=== PATIENT | female | born 1985 | race Two or more races ===

== ENCOUNTER 2018-08-19 18:05 | Emergency (ER) | payer OTHER ==
[~2018-08-19] VITALS: Ht 162.6 cm; Wt 54.4 kg
--- NOTE | 2018-08-19 18:30 | NUR ---
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 Patient a/ox4, breathing even and unlabored, kept comfortable, placed on the monitor.
[2018-08-19] MEDS ORDERED: IV NS 0.9% 1,000 ML BAG IV ONE (19:00)
[2018-08-19 19:07] LABS: BASOPHILS # (AUTO) 0.1 /CMM (0.0-0.2); BASOPHILS % (AUTO) 0.9 % (0.0-2.0); EOSINOPHILS % (AUTO) 3.4 % (0.0-6.0); HEMATOCRIT 42 % (33-45); HEMOGLOBIN 14.2 g/dL (11.5-14.8); LYMPHOCYTES # (AUTO) 1.8 /CMM (0.8-4.8); LYMPHOCYTES % (AUTO) 20.5 % (20.0-44.0); MEAN CORPUSCULAR HGB CONC 34 g/dl (31.0-36.0); MEAN CORPUSCULAR VOLUME 90 fL (82-100); MONOCYTES # (AUTO) 0.6 /CMM (0.1-1.30); NEUTROPHILS # (AUTO) 6.1 /CMM (1.8-8.9); NEUTROPHILS % (AUTO) 68.2 % (43.0-81.0); PLATELET COUNT (AUTO) 232 /CMM (150-450); RED BLOOD CELL COUNT(AUTO) 4.68 MIL/uL (4.0-5.2)
[2018-08-19 19:27] LABS: BILIRUBIN,TOTAL 0.2 mg/dL (0.2-1.0); CALCIUM, SERUM 9.1 mg/dL (8.5-10.1); CREATININE 0.6 mg/dL (0.6-1.3); POTASSIUM 3.5 mmol/L (3.5-5.1)
[2018-08-19 19:37] LABS: APPEARANCE,URINE Clear (CLEAR); BILIRUBIN,URINE Negative (NEGATIVE); BLOOD, URINE Negative Ery/uL (NEGATIVE); COLOR,URINE Yellow (YELLOW); KETONES,URINE Negative (NEGATIVE); LEUKOCYTE ESTERASE ,URINE Negative (NEGATIVE); NITRITE, URINE Negative (NEGATIVE); PROTEIN,URINE Negative (NEGATIVE); UGLUCOSE Negative (NEGATIVE); UROBILINOGEN,URINE 0.2 EU/dL (0.2)
--- NOTE | 2018-08-19 19:52 | NUR ---
patient came back from CT.
[2018-08-19] MEDS ORDERED: ALPRAZOLAM 0.5 MG TABLET ONE (19:58)
[2018-08-19] MEDS ORDERED: ALPRAZOLAM 0.5 MG TABLET PO ONE (20:00)
--- NOTE | 2018-08-19 21:10 | NUR ---
Rx provided, PIV removed. Patient discharged to home in stable condition. Written and verbal after care instructions given. Patient verbalizes understanding of instruction.
[2018-08-19 21:11] VITALS: BP 109/64
== END 2018-08-19 21:11 | disposition home or self-care (01) ==
LOC: ER 18:05
DX: R42 Dizziness and giddiness (principal); R20.2 Paresthesia of skin; R41.82 Altered mental status, unspecified; Z60.2 Problems related to living alone
CPT/HCPCS: 36415; 70450; 80048; 80076; 81001; 83690; 84703; 85025; 96360; 99284; J7030 ×2; 81000-TC

== ENCOUNTER 2024-10-29 08:57 | Emergency (ER) | payer BC, OTHER ==
[~2024-10-29] VITALS: Ht 162.6 cm; Wt 63.5 kg
[2024-10-29] MEDS ORDERED: dexaMETHasone SOD PHOSPHATE 1 ML ONE (11:17)
[2024-10-29] MEDS ORDERED: METHOCARBAMOL (500MG) 500 MG TABLET ONE (11:18)
[2024-10-29] MEDS ORDERED: KETOROLAC TROMETHAMINE INJ 30 MG/ML VIAL ONE (11:18)
[2024-10-29] MEDS ORDERED: ACETAMINOPHEN 325 MG TABLET ONE (11:18)
[2024-10-29] MEDS: KETOROLAC TROMETHAMINE INJ 30 MG/ML VIAL IM ONE (11:26)
[2024-10-29] MEDS: METHOCARBAMOL (750MG) 750 MG TABLET PO ONE (11:26)
[2024-10-29] MEDS: dexaMETHasone SOD PHOSPHATE 4 MG/ML VIAL IM ONE (11:26)
[2024-10-29] MEDS: ACETAMINOPHEN 325 MG TABLET PO ONE (11:27)
[2024-10-29] MEDS ORDERED: LIDOCAINE 5% (PATCH) 1 EA PATCH TP ONE (11:29)
[2024-10-29] MEDS: LIDOCAINE 5% (PATCH) 1 EA PATCH TP ONE (11:38)
[2024-10-29] MEDS: IV NS 0.9% 1,000 ML BAG IV ONE (11:41)
[2024-10-29 11:48] LABS: PLATELET COUNT (AUTO) 230 K/uL (150-450); RED BLOOD CELL COUNT(AUTO) 4.59 MIL/uL (4.0-5.2); RED CELL DISTRIBUTION WIDTH 13.0 % (11.5-15.0); WHITE BLOOD COUNT (AUTO) 9.3 K/uL (4.3-11.0)
[2024-10-29 11:57] LABS: CALCIUM, SERUM 8.8 mg/dL (8.5-10.1); CREATININE 0.7 mg/dL (0.6-1.3); SODIUM SERUM 138 mmol/L (136-145); UREA NITROGEN, BLOOD 7 mg/dL (7-18)
[2024-10-29 12:04] LABS: ASPARTATE AMINOTRANSFERASE 13 U/L (15-37); TOTAL PROTEIN, SERUM 7.2 g/dL (6.4-8.2)
[2024-10-29] MEDS ORDERED: IBUP-1490 PO (12:45)
[2024-10-29] MEDS ORDERED: METH-649 PO (12:45)
[2024-10-29] MEDS ORDERED: LIDO30AD10 TP (12:45)
[2024-10-29 13:04] VITALS: BP 115/70; TEMP 98.1; O2SAT 99
== END 2024-10-29 12:50 | disposition home or self-care (01) ==
LOC: ER 09:03
DX: M54.50 Low back pain, unspecified (principal); R07.9 Chest pain, unspecified; Z60.2 Problems related to living alone; X50.0XXA Overexertion from strenuous movement or load, initial encounter; Y93.89 Activity, other specified; Y92.89 Other specified places as the place of occurrence of the external cause; Y99.8 Other external cause status
CPT/HCPCS: 99285; 96360; 71045; 93005 ×2; 85025; 80048; 80076; 84703; 36415; 84484; 96372; J1885; J1100; J7030